=== PATIENT | female | born 1970 | race Caucasian/White ===

== ENCOUNTER → 2019-09-09 | Outpatient (CLI) | payer OTHER ==
--- NOTE | 2019-09-09 15:32 | KCIC ---
EXAM: 3 views of the right elbow DATE: 09/09/2019 12:00 AM INDICATION: Right elbow pain COMPARISON: No Prior FINDINGS: No elbow joint effusion. No acute fracture or dislocation. Subtle calcifications projecting over the distal triceps tendon possibly from old injury. Mild soft tissue swelling overlying the olecranon IMPRESSION: 1. No acute fracture or dislocation. 2. Subtle calcifications projecting over the distal triceps tendon possibly from old injury. 3. Mild soft tissue swelling overlying the olecranon. Electronically signed by: Ej Bedolla MD (09/09/2019 3:29 PM) [id number]
== END | disposition home or self-care (01) ==
LOC: KCIC 14:20
PROVIDERS: ATTEND Nurse Practitioner Family
DX: M79.89 Other specified soft tissue disorders (principal); M25.521 Pain in right elbow
CPT/HCPCS: 73080

== ENCOUNTER → 2021-10-10 | Outpatient (CLI) | payer OTHER ==
--- NOTE | 2021-10-10 11:54 | KCIC ---
EXAMINATION: Magnetic resonance imaging (MRI) of the lumbar spine without contrast 10/10/2021 10:20 A M HISTORY: Low back pain with radiation. Weakness in left leg. Annular disc tear. TECHNIQUE: Multiplanar multi-weighted MRI of the lumbar spine was performed without intravenous contr ast using the standard lumbar spine protocol. Contrast information: None administered. COMPARISON: None available. FINDINGS: There is 1 mm retrolisthesis of L4 on L5. Vertebral bodies demonstrate normal signal intensity on all sequences. There are no compression fractures. The conus medullaris terminates at the level of L1. The distal spinal cord signal intensity is normal. There is mild disc osteophyte L5 with disc desic cation and annular fissure. Limited views of the abdomen and pelvis show no soft tissue abnormality. The aorta is normal. L1-L2: The disc is normal in configuration. There is no facet arthropathy. There is no neuroforaminal stenosis. There is no spinal canal stenosis. L2-L3: The disc is normal in configuration. There is no facet arthropathy. There is no neuroforaminal stenosis. There is no spinal canal stenosis. L3-L4: The disc is normal in configuration. There is mild facet arthropathy. There is no neuroforamin al stenosis. There is no spinal canal stenosis. L4-L5: There is a disc bulge with left central disc extrusion. There is mild facet arthropathy ligame ntum flavum infolding. Mild to moderate bilateral neuroforaminal stenosis. There is left lateral rece ss stenosis, likely impinging the left exiting L5 nerve root. Mild spinal canal stenosis. L5-S1: The disc is normal in configuration. There is moderate facet arthropathy. There is no neurofor aminal stenosis. There is no spinal canal stenosis. IMPRESSION: Mild degenerative changes of the lumbar spine as described in detail above. Electronically signed by: Padma Gutierrez MD (10/10/2021 11:51 AM) [facility]
== END ==
LOC: KCIC MRI 10:03
PROVIDERS: ATTEND Family Medicine
DX: M47.816 Spondylosis without myelopathy or radiculopathy, lumbar region (principal); M48.8X7 Other specified spondylopathies, lumbosacral region; M43.16 Spondylolisthesis, lumbar region; M51.26 Other intervertebral disc displacement, lumbar region; M48.061 Spinal stenosis, lumbar region without neurogenic claudication; M25.78 Osteophyte, vertebrae; M51.9 Unspecified thoracic, thoracolumbar and lumbosacral intervertebral disc disorder; M54.41 Lumbago with sciatica, right side
CPT/HCPCS: 72148